=== PATIENT | male | born 1985 | race Caucasian/White ===

== ENCOUNTER → 2024-09-06 09:15 | Outpatient (BNV) | payer BC, SELFPAY | PROVIDERS: Visit Provider Psychiatry & Neurology Psychiatry | DX: F33.2 Major depressive disorder, recurrent severe without psychotic features (principal); F41.1 Generalized anxiety disorder | CPT/HCPCS: 99213 ==

== ENCOUNTER 2024-09-09 09:15 | Outpatient (RCR) | payer BC, SELFPAY ==
[2024-08-26 11:52] VITALS: BMI 22.6
[2024-08-26 11:53] VITALS: BP 94/58; PULSE 60; TEMP 37
--- NOTE | 2024-08-26 12:47 | PC.ADMIT ---
Patient is a 39 year old non-binary individual who uses they/them pronouns who was referred to [facility] by their therapist d/t c/o anxiety with panic and depression. Patient reports they are taking a leave of absence from work to work on their mental health. They are applying for FMLA. Patient stated he works from home. Patient reports they moved to this area from [facility] last month and were recently in May. Patient is alert and oriented x4. They are calm and cooperative. They present with depressed mood and anxious affect. They denied SI, no HI. They were given a copy of their safety plan if needed. Patient does not feel safe in the world d/t the current political environment and being a queer person . Patient reports difficulty with concentrating and focus while at work. Patient's medications reconciled with patient and patient's pharmacy. Patient stated they are taking medications as prescribed. Patient stated they have 1-2 drinks a few days a week when out to dinner and occasionally has smoked marijuana however has since quit using since on Abilify.
--- NOTE | 2024-08-26 12:48 | PC.NURSE ---
Carson moved to this area about a month ago. They state they have providers in the [place] area however would like to have a PCP who is trans friendly. They stated they have done some research and would like to go to [facility] in [place]. They stated they are on a wait list for [facility] in [place], [place]. Patient called [facility] while in my office. Patient has an appointment with [facility] [address], [facility] on March 24, 2026. Office # [phone]. Carson stated they are on their cancellation list thus could get a sooner appointment. They stated they can continue using their PCP in [facility] if needed. I also made patient aware of Urgent Care Centers if needed.
--- NOTE | 2024-08-28 08:35 | HO.PS.ADMBH ---
[facility] Date of Service: 08/27/24 Chief Complaint: JOSHUA,panic attacks Sources of Information: patient interviewed, chart reviewed and crisis/core team assessment reviewed [facility] Medical History (Updated 08/28/24 @ 08:35 by Rylie Copeland MD) No known health problems Diagnostics Vital Signs (24Hr): BMI result Body Mass Index 22.6 Meds/Allergies Meds Home Medications ?Medication ?Instructions ?Recorded ?Confirmed ?Type estradiol valerate 20 mg/mL 3 mg IM QWEEK 08/26/24 08/26/24 History intramuscular oil fluoxetine 20 mg capsule (Prozac) 20 mg PO DAILY 08/26/24 08/26/24 History fluoxetine 40 mg capsule (Prozac) 40 mg PO DAILY 08/26/24 08/26/24 History fluticasone propionate 50 1 - 2 spray intranasal DAILY 08/26/24 08/26/24 History mcg/actuation nasal spray,suspension (Flonase Allergy Relief) lorazepam 0.5 mg tablet 0.5 mg PO BID PRN Anxiety 08/26/24 08/26/24 History trazodone 50 mg tablet 50 - 100 mg PO BEDTIME 08/26/24 08/26/24 History spironolactone 100 mg tablet 50 mg PO DAILY 08/27/24 08/27/24 History Allergies Allergies Allergy/AdvReac Type Severity Reaction Status Date / Time house dust AdvReac Headace, Verified 08/26/24 11:51 sneezing Assessment & Plan Assessment & Plan (1) MDD (major depressive disorder), recurrent severe, without psychosis: Status: Acute Code(s): F33.2 - Major depressive disorder, recurrent severe without psychotic features (2) JOSHUA (generalized anxiety disorder): Status: Acute Code(s): F41.1 - Generalized anxiety disorder Plan Admit to [facility] VS reviewed: afebrile, BP 94/58;?60 bpm increase Abilify to 3 mg daily continue other regular medications? Routine lab work ordered as indicated EKG, routine for baseline QTc for medication considerations as indicated UDS as indicated [facility] reviewed Continue to monitor as per protocol Patient educated on: diagnosis and medication risk/benefits Informed Consent: understands Reason for continued partial hosp. stay Substantial Risk for: inability to function, rapid decompensation and med/psych decompensation Certification I certify that partial hospital treatment is medically necessary due to the symptoms and problems resulting from the patient's mental illness and the failure to treat the patient at the partial hospital level of care would likely result in the patient requiring inpatient psychiatric care which could not be prevented at a less intensive level of care. Time Spent With Patient Time: Total time managing care of this patient today __90__ minutes.
--- NOTE | 2024-08-29 14:55 | HO.IOP ---
Patient's case was open and review in teams.
--- NOTE | 2024-09-06 11:59 | P.PNPSP_ITS ---
Subjective Subjective Date of Service: 09/06/24 Reason For Visit: JOSHUA,panic attacks Interim History: Patient seen for follow-up, anticipating discharge at the end of program today.? ?It is been a roller coaster dot dot dot but I am feeling better feel adjusted now.? She requests FMLA paper be completed an emailed over to her at: [email or web address], and can call her for any questions ([phone]). Reports no acute issues or concerns. Medication compliant, medications well-tolerated. Denies any adverse effects.? Mood is stable.? Denies any hopelessness or SI. Denies thoughts of harming self or others at this time. Denies any aggressive ideation or HI. Denies any paranoia or AH or VH. Sleep, appetite, energy stable. Medication Compliance: Yes Side effects from medications: No Attending Groups: Yes Review of Systems Acute medical concerns: No Mental Status Exam Mental Status Exam Narrative: Alert, oriented, in no acute distress. Calm, cooperative. Mood stable, affect appropriate. Speech normal. Thought process linear, coherent, more goal- directed. Thought content related to stressors, future-oriented, denies any helplessness, hopelessness or SI.? No aggressive ideation or HI. No paranoia or delusional content elicited. No evidence of psychosis. Insight and judgment fair-good. Diagnostics Vital Signs (24Hr): BMI result Body Mass Index 22.6 Assessment & Plan Assessment & Plan (1) MDD (major depressive disorder), recurrent severe, without psychosis: Status: Acute Code(s): F33.2 - Major depressive disorder, recurrent severe without psychotic features (2) JOSHUA (generalized anxiety disorder): Status: Acute Code(s): F41.1 - Generalized anxiety disorder Plan Discharge from [facility] Continue regular medications Refills sent to pharmacy Will defer further medication management to outpatient provider *Safety plan reviewed *Discharge diagnoses, treatment course, discharge plan have been reviewed with patient (including medication regime, medication management, potential side effects) as well as treatment rationale were also revisited *Discharge paperwork signed and given to patient, copy sent for scanning to chart Patient educated on: diagnosis and medication risk/benefits Informed Consent: understands Reason for contiued partial hosp. stay Substantial Risk for: stable for discharge Certification I certify that partial hospital treatment is medically necessary due to the symptoms and problems resulting from the patient's mental illness and the failure to treat the patient at the partial hospital level of care would likely result in the patient requiring inpatient psychiatric care which could not be prevented at a less intensive level of care. Total time managing care of this patient today ___30_ minutes. Discharge Plan Discharge Attending provider: Rylie Copeland Additional Instructions: New PCP appointment with [facility] [address] [place] [address], [facility] on March 24, 2026. Office # [phone]. Carson stated they are on their cancellation list thus could get a sooner appointment. Patient also on wait list for [facility] in [place], [place]. Medications: New aripiprazole 2 mg tablet 4 mg PO DAILY Qty: 20 0RF Continued fluoxetine [Prozac] 40 mg Capsule 40 mg PO DAILY fluoxetine [Prozac] 20 mg Capsule 20 mg PO DAILY trazodone 50 mg Tablet 50 - 100 mg PO BEDTIME lorazepam 0.5 mg Tablet 0.5 mg PO BID PRN (Reason: Anxiety) fluticasone propionate [Flonase Allergy Relief] 50 mcg/actuation [place], Suspension 1 - 2 spray intranasal DAILY Rx Instructions: Patient gets OTC. Administer into each nostril estradiol valerate 20 mg/mL oil 3 mg IM QWEEK Rx Instructions: 20mg/1mL. Inject 0.15 mL weekly. spironolactone 100 mg Tablet 50 mg PO DAILY Rx Instructions: Take half a tab daily. Discontinued aripiprazole [Abilify] 2 mg Tablet 2 mg PO DAILY Stand Alone Forms: Patient Portal Discharge page Patient Education: Depression (DC), Anxiety (ED) Print Language: Belarusian
== END 2024-09-09 23:59 | disposition home or self-care (01) ==
LOC: HO.PHPA 09:15
PROVIDERS: Visit Provider Psychiatry & Neurology Psychiatry
DX: F33.2 Major depressive disorder, recurrent severe without psychotic features (principal); F41.1 Generalized anxiety disorder
CPT/HCPCS: 90791; 90853